=== PATIENT | male | born 1985 | race African-American/Black ===

== ENCOUNTER 2023-07-01 11:34 | Emergency (ER) | payer MEDICAID, OTHER ==
[~2023-07-01] VITALS: Ht 185.4 cm; Wt 98.0 kg
[2023-07-01 11:48] VITALS: BP 153/93; PULSE 97; RESP 20; TEMP 98.9; O2SAT 100
[2023-07-01] MEDS ORDERED: LIDOCAINE HCL/PF 1% 10 MG/ML 5ML VIAL INFIL ONE (13:45)
[2023-07-01] MEDS ORDERED: BACITRACIN ZINC OINT UDPKT TOP ONE (13:45)
== END 2023-07-01 17:55 | disposition home or self-care (01) ==
LOC: ER 11:34
DX: S01.111A Laceration without foreign body of right eyelid and periocular area, initial encounter (principal); X58.XXXA Exposure to other specified factors, initial encounter; Y93.9 Activity, unspecified; Y92.89 Other specified places as the place of occurrence of the external cause; Y99.8 Other external cause status
CPT/HCPCS: 99281